=== PATIENT | female | born 1945 | race Caucasian/White ===

== ENCOUNTER 2016-04-29 16:17 | Emergency (ER) | payer MEDICARE, OTHER | END 2016-04-29 20:02 | disposition left against medical advice (07) | LOC: ER1 16:17 | DX: Z53.21 Procedure and treatment not carried out due to patient leaving prior to being seen by health care provider (principal) ==

== ENCOUNTER 2020-09-19 21:39 | Emergency (ER) | payer MEDICARE, OTHER ==
[~2020-09-19 21:39] MED LIST: CATAPRES0.2 MG PO; FLEXERIL 10 MG10 MG PO; K-DUR TAB 10 M10 MEQ PO; LOTENSIN40 MG PO; NORCO 10-325 T1 EACH PO; NORVASC 5 MG TAB5 MG PO; OMEPRAZOLE20 MG PO; TENORMIN 50 MG50 MG PO; VESICARE5 MG PO; VITAMIN D31000 UNI1 PO; ZITHROMAX250 MG PO
[2020-09-19 22:12] LABS: RED BLOOD COUNT 4.48 M/UL (4.00-5.10); WHITE BLOOD COUNT 4.3 K/UL (4.5-11.0)
[2020-09-19 22:34] LABS: BUN/CREATININE RATIO 20 (0-10)
== END 2020-09-19 22:49 | disposition home or self-care (01) ==
LOC: ER1 21:39
PROVIDERS: Student in an Organized Health Care Education/Training Program
DX: U07.1 COVID-19 (principal); J44.9 Chronic obstructive pulmonary disease, unspecified; I10 Essential (primary) hypertension; Z90.710 Acquired absence of both cervix and uterus
CPT/HCPCS: 36600; 71045; 80053; 82550; 82553; 82803; 83874; 84484; 85025; 93005; 99285

== ENCOUNTER 2020-09-24 23:33 | Inpatient (IN) | payer MEDICARE, OTHER ==
[~2020-09-24] VITALS: Ht 160 cm; Wt 108.0 kg
[2020-09-25 00:27] LABS: HEMOGLOBIN 12.4 gm/dl (12.3-15.3); RED BLOOD COUNT 4.21 M/UL (4.00-5.10); WHITE BLOOD COUNT 7.2 K/UL (4.5-11.0)
[2020-09-25 00:48] LABS: BUN/CREATININE RATIO 28 (0-10)
[2020-09-25] MEDS ORDERED: ZOLOFT100 MG PO (09:27)
[2020-09-25] MEDS ORDERED: XANAX1 MG PO (09:29)
[2020-09-25] MEDS ORDERED: CHLORTHALIDONE25 MG PO (10:57)
[2020-09-25] MEDS ORDERED: ASPIRIN EC81 MG PO (10:58)
[2020-09-25] MEDS ORDERED: DOXEPIN HCL25 MG PO (10:58)
[2020-09-25] MEDS ORDERED: CARVEDILOL25 MG PO (10:59)
[2020-09-25] MEDS ORDERED: PLAVIX75 MG PO (11:01)
[2020-09-25] MEDS ORDERED: CETIRIZINE HCL10 MG PO (11:01)
[2020-09-25] MEDS ORDERED: ATORVASTATIN CA40 MG PO (11:02)
[2020-09-25] MEDS ORDERED: CLEAR EYES NATU15 ML EYEBOTH (11:05)
[2020-09-25] MEDS ORDERED: LISINOPRIL40 MG PO (11:09)
[2020-09-26 02:44] LABS: HEMOGLOBIN 11.1 gm/dl (12.3-15.3); RED BLOOD COUNT 3.86 M/UL (4.00-5.10)
[2020-09-26 02:46] LABS: WHITE BLOOD COUNT 5.2 K/UL (4.5-11.0)
[2020-09-27 05:40] LABS: HEMOGLOBIN 11.7 gm/dl (12.3-15.3); RED BLOOD COUNT 4.06 M/UL (4.00-5.10); WHITE BLOOD COUNT 7.3 K/UL (4.5-11.0)
--- NOTE | 2020-09-27 10:49 | NUR ---
10-27-20 0735 TELE CALLS STATES THAT PTS SAT DROPPED DOWN TO THE 70S, WENT TO PTS ROOM AND PT HAD OXYGEN OFF, REAPPLIED O2 AND PT BEGINS TO PULL AT O2 TUBING I TAPED TUBING TO CHEEKS AND EXPLAINED TO PT WHY IT WAS IMPORTANT TO KEEP O2 ON. 09 TELE CALLS O2 HAS DROPPED AGAIN O2 REAPPLIED EDUCATED PT ON KEEPING O2 ON.1020 TELE CALLED O2 SAT DROPPED ONCE AGAIN UNABLE TO GET SAT STABLE O2 CHANGED TO 12L HIGH FLOW.JAROD BERMUDEZ (JAROD) NOTIFIED AND GIVEN AN UPDATE.1130 PT CONTINUES TO PULL OFF O2 AFTER MANY ATTEMPTS TO KEEP IT ON,PTS CONFUSION IS WORSE ATTEMPTED TO CALL DR BORDEN XS2 BUT UNSUCCESSFUL. CALLED DR CUENCA HE STATED THAT HE WASNT ON PTS CASE. 1210 LEONOR SUTHERLANDL ON FLOOR TO SEE PT NEW ORDERS RECEIVED AND PT TAKEN TO ICU, REPORT GIVEN TO FOX AND JAROD BERMUDEZ NOTIFIED PT TRANSFERRED TO ROOM 2128
[2020-09-28 04:16] LABS: HEMOGLOBIN 10.5 gm/dl (12.3-15.3); RED BLOOD COUNT 3.7 M/UL (4.00-5.10); WHITE BLOOD COUNT 6.3 K/UL (4.5-11.0)
[2020-09-29 05:39] LABS: HEMOGLOBIN 10.6 gm/dl (12.3-15.3); RED BLOOD COUNT 3.71 M/UL (4.00-5.10); WHITE BLOOD COUNT 7.1 K/UL (4.5-11.0)
[2020-09-29 05:54] LABS: BUN/CREATININE RATIO 55 (0-10)
[2020-09-30 05:58] LABS: HEMOGLOBIN 11.5 gm/dl (12.3-15.3); RED BLOOD COUNT 3.99 M/UL (4.00-5.10)
[2020-09-30 06:27] LABS: BUN/CREATININE RATIO 54 (0-10)
[2020-10-01 05:13] LABS: HEMOGLOBIN 12.1 gm/dl (12.3-15.3); RED BLOOD COUNT 4.2 M/UL (4.00-5.10)
[2020-10-01 05:52] LABS: BUN/CREATININE RATIO 65 (0-10)
[2020-10-01 15:14] LABS: ADENOVIRUS F 40/41 Not Detected (Negative); ASTROVIRUS Not Detected (Negative); CAMPYLOBACTER Not Detected (Negative); CLOSTRIDIUM DIFFICILE TOX A/B Not Detected (Negative); CRYPTOSPORIDIUM Not Detected (Negative); E.COLI 0157 Not Detected (Negative); ENTAMOEBA HISTOLYTICA Not Detected (Negative); ENTEROAGGREGATIVE E.COLI (EAEC Not Detected (Negative); ENTEROPATHOGENIC E.COLI (EPEC) Not Detected (Negative); ENTEROTOXIGENIC E.COLI (ETEC) Not Detected (Negative); GIARDIA LAMBLIA Not Detected (Negative); NOROVIRUS GI/GII Not Detected (Negative); PLESIOMONAS SHIGELLOIDES Not Detected (Negative); ROTOVIRUS A Not Detected (Negative); SALMONELLA Not Detected (Negative); SAPOVIRUS Not Detected (Negative); SHIG/ENTEROINVAS.ECOLI (EIEC) Not Detected (Negative); SHIGA-LIK TOX.PRO.E.COLI (STEC Not Detected (Negative); VIBRIO Not Detected (Negative); VIBRIO CHOLERAE Not Detected (Negative); YERSINIA ENTEROCOLITICA Not Detected (Negative)
[2020-10-02 06:07] LABS: HEMOGLOBIN 12.1 gm/dl (12.3-15.3); RED BLOOD COUNT 4.24 M/UL (4.00-5.10); WHITE BLOOD COUNT 9.2 K/UL (4.5-11.0)
[2020-10-02 06:10] LABS: BUN/CREATININE RATIO 66 (0-10)
[2020-10-03 05:54] LABS: HEMOGLOBIN 11.7 gm/dl (12.3-15.3); RED BLOOD COUNT 4.07 M/UL (4.00-5.10)
[2020-10-03 06:12] LABS: BUN/CREATININE RATIO 68 (0-10)
[2020-10-03 19:01] LABS: HEMOGLOBIN 11.4 gm/dl (12.3-15.3)
--- NOTE | 2020-10-03 19:05 | NUR ---
CALLED DR. PRIETO ABOUT BLEEDING FROM AN IV SITE THAT THE PT HAD DC'D. HE SAID TO ORDER AN H&H TO BE SURE.
[2020-10-04 04:59] LABS: HEMOGLOBIN 11.3 gm/dl (12.3-15.3); RED BLOOD COUNT 3.91 M/UL (4.00-5.10)
[2020-10-04 05:10] LABS: WHITE BLOOD COUNT 15.7 K/UL (4.5-11.0)
[2020-10-04 05:18] LABS: BUN/CREATININE RATIO 59 (0-10)
[2020-10-05 04:54] LABS: HEMOGLOBIN 11.2 gm/dl (12.3-15.3); RED BLOOD COUNT 3.86 M/UL (4.00-5.10)
[2020-10-06 05:24] LABS: HEMOGLOBIN 11.7 gm/dl (12.3-15.3); RED BLOOD COUNT 4.1 M/UL (4.00-5.10); WHITE BLOOD COUNT 12.3 K/UL (4.5-11.0)
[2020-10-06 05:43] LABS: BUN/CREATININE RATIO 53 (0-10)
[2020-10-07 07:05] LABS: RED BLOOD COUNT 3.84 M/UL (4.00-5.10); WHITE BLOOD COUNT 13.5 K/UL (4.5-11.0)
[2020-10-07 07:15] LABS: BUN/CREATININE RATIO 51 (0-10)
--- NOTE | 2020-10-07 15:16 | NUR ---
1515- NOTIFIED DR PRIETO OF TELE READING OF SVT 150S FOR 6 SECONDS. NO NEW ORDERS NOTED.
[2020-10-08 06:58] LABS: HEMOGLOBIN 10.4 gm/dl (12.3-15.3); RED BLOOD COUNT 3.62 M/UL (4.00-5.10)
[2020-10-08 06:59] LABS: WHITE BLOOD COUNT 8.4 K/UL (4.5-11.0)
[2020-10-08 07:30] LABS: BUN/CREATININE RATIO 54 (0-10)
--- NOTE | 2020-10-08 16:50 | NUR ---
ok to take off tele for MRI
[2020-10-09 06:30] LABS: HEMOGLOBIN 10.8 gm/dl (12.3-15.3); RED BLOOD COUNT 3.74 M/UL (4.00-5.10)
[2020-10-09 07:02] LABS: BUN/CREATININE RATIO 42 (0-10)
[2020-10-10 03:06] LABS: RED BLOOD COUNT 3.48 M/UL (4.00-5.10); WHITE BLOOD COUNT 9.6 K/UL (4.5-11.0)
[2020-10-10 03:49] LABS: BUN/CREATININE RATIO 37 (0-10)
[2020-10-10] MEDS ORDERED: AMLODIPINE BESYL5 MG PO (08:43)
[2020-10-10] MEDS ORDERED: PROVENTIL HFA6.7 GM INH (08:49)
--- NOTE | 2020-10-10 12:06 | NUR ---
OXYGEN SAT 87 ON ROOM AIR
== END 2020-10-10 13:45 | disposition home health service (06) | DRG 870 ==
LOC: ER1 23:33 → CDU 09-25 01:29 → M/S 09-25 01:29 → CCU 09-25 01:29 → MED SURG 4 09-25 21:04 → CCU 09-26 14:25 → M/S 10-04 14:29
PROVIDERS: Family Medicine; Internal Medicine; ADMIT Internal Medicine
PROC: 3E0333Z Introduction of Anti-inflammatory into Peripheral Vein, Percutaneous Approach (ICD-10-PCS; 2020-09-25)
PROC: XW033E5 Introduction of Remdesivir Anti-infective into Peripheral Vein, Percutaneous Approach, New Technology Group 5 (ICD-10-PCS; 2020-09-25)
PROC: 8E0ZXY6 Isolation (ICD-10-PCS; 2020-09-25)
PROC: 5A1955Z Respiratory Ventilation, Greater than 96 Consecutive Hours (ICD-10-PCS; principal; 2020-09-26)
PROC: 0BH18EZ Insertion of Endotracheal Airway into Trachea, Via Natural or Artificial Opening Endoscopic (ICD-10-PCS; 2020-09-26)
PROC: 3E033XZ Introduction of Vasopressor into Peripheral Vein, Percutaneous Approach (ICD-10-PCS; 2020-09-26)
DX: A41.89 Other specified sepsis (principal); U07.1 COVID-19; J12.82 Pneumonia due to coronavirus disease 2019; G93.41 Metabolic encephalopathy; J80 Acute respiratory distress syndrome; N17.9 Acute kidney failure, unspecified; I12.9 Hypertensive chronic kidney disease with stage 1 through stage 4 chronic kidney disease, or unspecified chronic kidney disease; R65.20 Severe sepsis without septic shock; E11.22 Type 2 diabetes mellitus with diabetic chronic kidney disease; N18.9 Chronic kidney disease, unspecified; E87.70 Fluid overload, unspecified; G47.33 Obstructive sleep apnea (adult) (pediatric); E87.6 Hypokalemia; I25.10 Atherosclerotic heart disease of native coronary artery without angina pectoris; E78.5 Hyperlipidemia, unspecified; E66.01 Morbid (severe) obesity due to excess calories; D63.1 Anemia in chronic kidney disease; E86.0 Dehydration; E11.65 Type 2 diabetes mellitus with hyperglycemia; F41.9 Anxiety disorder, unspecified; Z95.1 Presence of aortocoronary bypass graft; Z86.718 Personal history of other venous thrombosis and embolism; Z79.82 Long term (current) use of aspirin; Z88.0 Allergy status to penicillin; Z91.14 Patient's other noncompliance with medication regimen
CPT/HCPCS: 31500; 36415; 36600; 70551; 71045; 80048; 80053; 81001; 82140; 82550; 82553; 82728; 82803; 82962; 83036; 83605; 83735; 83874; 83880; 84100; 84132; 84484; 85014; 85018; 85025; 85027; 85652; 86140; 87040; 87070; 87086; 87205; 87507; 92526; 92610; 93005; 94002; 94003; 94640; 94664; 94760; 97110-GP-CQ; 97162; 97530-GP-CQ; 99285; A6212; J0330; J0360; J0456; J0696; J1100; J1650; J1940; J2020; J2185; J2704; J3480; J7030; U0002

== ENCOUNTER 2021-05-30 15:08 | Emergency (ER) | payer MEDICARE, OTHER ==
[~2021-05-30 15:08] MED LIST changes: +ACETAMINOPHEN325 MG PO; +AMLODIPINE BESYL5 MG PO; +AMOX TR-K CLV1 EAC4 PO; +ARICEPT5 MG PO; +ASPIRIN EC81 MG PO; +ATORVASTATIN CA40 MG PO; +CARVEDILOL25 MG PO; +CETIRIZINE HCL10 MG PO; +CHLORTHALIDONE25 MG PO; +CLEAR EYES NATU15 ML EYEBOTH; +DOXEPIN HCL25 MG PO; +ELIQUIS 5 MG TAB5 MG PO; +LISINOPRIL40 MG PO; +NORVASC5 MG PO; +NYSTATIN15 GM TOP; +PLAVIX75 MG PO; +PROVENTIL HFA6.7 GM INH; +VITAMIN D21250 MCG PO; +XANAX1 MG PO; +ZOLOFT100 MG PO
[2021-05-30 16:08] LABS: HEMOGLOBIN 9.9 gm/dl (12.3-15.3); RED BLOOD COUNT 3.56 M/UL (4.00-5.10); WHITE BLOOD COUNT 8.5 K/UL (4.5-11.0)
[2021-05-30] MEDS ORDERED: IMODIUM CAP 2 MG2 MG PO (18:40)
[2021-05-30] MEDS ORDERED: WIXELA 250-501 EACH INH (18:40)
== END 2021-05-30 20:30 | disposition home or self-care (01) ==
LOC: ER1 15:08
PROVIDERS: Physician Assistant
DX: E86.0 Dehydration (principal); J44.9 Chronic obstructive pulmonary disease, unspecified; R19.7 Diarrhea, unspecified; I10 Essential (primary) hypertension
CPT/HCPCS: 71045; 80053; 81001; 85025; 99284

== ENCOUNTER → 2021-06-10 | Outpatient (CLI) | payer MEDICARE, OTHER ==
[~2021-06-10] MED LIST changes: +IMODIUM CAP 2 MG2 MG PO; +WIXELA 250-501 EACH INH
== END ==
LOC: LAB 12:45
DX: R09.02 Hypoxemia (principal); Z99.81 Dependence on supplemental oxygen
CPT/HCPCS: 36600; 71046; 82803

== ENCOUNTER 2021-07-31 11:13 | Inpatient (IN) | payer MEDICARE, OTHER ==
[~2021-07-31] VITALS: Ht 160 cm; Wt 107.0 kg
[2021-07-31 11:54] LABS: HEMOGLOBIN 10.4 gm/dl (12.3-15.3); RED BLOOD COUNT 3.68 M/UL (4.00-5.10); WHITE BLOOD COUNT 11.4 K/UL (4.5-11.0)
[2021-07-31] MEDS ORDERED: FUROSEMIDE40 MG PO (15:17)
[2021-07-31] MEDS ORDERED: AMLODIPINE BESYL5 MG PO (15:17)
[2021-08-01 00:19] LABS: HEMOGLOBIN 9.8 gm/dl (12.3-15.3); RED BLOOD COUNT 3.48 M/UL (4.00-5.10)
[2021-08-01 00:23] LABS: WHITE BLOOD COUNT 8.3 K/UL (4.5-11.0)
[2021-08-03 03:02] LABS: HEMOGLOBIN 9.9 gm/dl (12.3-15.3); RED BLOOD COUNT 3.56 M/UL (4.00-5.10)
[2021-08-03 03:21] LABS: WHITE BLOOD COUNT 12.7 K/UL (4.5-11.0)
[2021-08-04 02:42] LABS: HEMOGLOBIN 9.7 gm/dl (12.3-15.3); RED BLOOD COUNT 3.5 M/UL (4.00-5.10); WHITE BLOOD COUNT 11.2 K/UL (4.5-11.0)
[2021-08-05 01:44] LABS: HEMOGLOBIN 9.6 gm/dl (12.3-15.3); RED BLOOD COUNT 3.45 M/UL (4.00-5.10); WHITE BLOOD COUNT 9.2 K/UL (4.5-11.0)
[2021-08-06 03:02] LABS: HEMOGLOBIN 9.6 gm/dl (12.3-15.3); RED BLOOD COUNT 3.51 M/UL (4.00-5.10); WHITE BLOOD COUNT 8.4 K/UL (4.5-11.0)
[2021-08-06 03:29] LABS: BUN/CREATININE RATIO 39 (0-10)
[2021-08-06] MEDS ORDERED: CEFUROXIME500 MG PO (10:54)
== END 2021-08-06 15:09 | disposition home health service (06) | DRG 291 ==
LOC: ER1 11:13 → CDU 13:49 → PROG CARE 13:49
PROVIDERS: Emergency Medicine; Internal Medicine; Internal Medicine Pulmonary Disease; ADMIT Internal Medicine
PROC: 5A09357 Assistance with Respiratory Ventilation, Less than 24 Consecutive Hours, Continuous Positive Airway Pressure (ICD-10-PCS; 2021-07-31)
PROC: B24BZZZ Ultrasonography of Heart with Aorta (ICD-10-PCS; principal; 2021-08-02)
PROC: 5A09357 Assistance with Respiratory Ventilation, Less than 24 Consecutive Hours, Continuous Positive Airway Pressure (ICD-10-PCS; 2021-08-02)
PROC: 5A09357 Assistance with Respiratory Ventilation, Less than 24 Consecutive Hours, Continuous Positive Airway Pressure (ICD-10-PCS; 2021-08-03)
PROC: 5A09357 Assistance with Respiratory Ventilation, Less than 24 Consecutive Hours, Continuous Positive Airway Pressure (ICD-10-PCS; 2021-08-03)
PROC: 5A09357 Assistance with Respiratory Ventilation, Less than 24 Consecutive Hours, Continuous Positive Airway Pressure (ICD-10-PCS; 2021-08-05)
DX: I11.0 Hypertensive heart disease with heart failure (principal); Z20.822 Contact with and (suspected) exposure to COVID-19; J96.21 Acute and chronic respiratory failure with hypoxia; J96.22 Acute and chronic respiratory failure with hypercapnia; I50.33 Acute on chronic diastolic (congestive) heart failure; G93.41 Metabolic encephalopathy; J18.9 Pneumonia, unspecified organism; J44.1 Chronic obstructive pulmonary disease with (acute) exacerbation; N17.9 Acute kidney failure, unspecified; E66.2 Morbid (severe) obesity with alveolar hypoventilation; J44.0 Chronic obstructive pulmonary disease with (acute) lower respiratory infection; Z68.41 Body mass index [BMI] 40.0-44.9, adult; E78.3 Hyperchylomicronemia; I48.0 Paroxysmal atrial fibrillation; E78.5 Hyperlipidemia, unspecified; I25.10 Atherosclerotic heart disease of native coronary artery without angina pectoris; E78.6 Lipoprotein deficiency; F32.A Depression, unspecified; I08.3 Combined rheumatic disorders of mitral, aortic and tricuspid valves; F41.9 Anxiety disorder, unspecified; I27.20 Pulmonary hypertension, unspecified; Z79.01 Long term (current) use of anticoagulants; Z79.82 Long term (current) use of aspirin; Z99.81 Dependence on supplemental oxygen; Z83.3 Family history of diabetes mellitus; Z88.8 Allergy status to other drugs, medicaments and biological substances; Z87.09 Personal history of other diseases of the respiratory system; Z86.718 Personal history of other venous thrombosis and embolism
CPT/HCPCS: ECHO; 36415; 36600; 51702; 71045; 80048; 80053; 81001; 82533; 82550; 82553; 82803; 82962; 83036; 83605; 83735; 83880; 84132; 84439; 84443; 84484; 85025; 85027; 85610; 85730; 86140; 87081; 87278; 93005; 93306; 94640; 94660; 94664; 94760; 96365; 96375; 96376; 97161; 97530; 97530-GP-CQ; 99285; J1205; J1335; J1940; J2543; J2920; J2930; J3475; P9047; U0002

== ENCOUNTER 2021-09-22 21:57 | Inpatient (IN) | payer MEDICARE, OTHER ==
[~2021-09-22] VITALS: Ht 160 cm; Wt 104.8 kg
[~2021-09-22 21:57] MED LIST changes: +CEFUROXIME500 MG PO; -CETIRIZINE HCL10 MG PO; +FUROSEMIDE40 MG PO
[2021-09-22 23:08] LABS: HEMOGLOBIN 10.7 gm/dl (12.3-15.3); RED BLOOD COUNT 4.04 M/UL (4.00-5.10); WHITE BLOOD COUNT 12.2 K/UL (4.5-11.0)
[2021-09-22 23:18] LABS: BUN/CREATININE RATIO 23 (0-10)
[2021-09-23 07:12] LABS: HEMOGLOBIN 9.3 gm/dl (12.3-15.3); WHITE BLOOD COUNT 9.2 K/UL (4.5-11.0)
[2021-09-23 07:18] LABS: RED BLOOD COUNT 3.43 M/UL (4.00-5.10)
[2021-09-23] MEDS ORDERED: CETIRIZINE HCL10 MG PO (10:17)
[2021-09-24 07:12] LABS: BUN/CREATININE RATIO 18 (0-10)
[2021-09-25 02:37] LABS: HEMOGLOBIN 9.1 gm/dl (12.3-15.3); RED BLOOD COUNT 3.31 M/UL (4.00-5.10); WHITE BLOOD COUNT 8.2 K/UL (4.5-11.0)
[2021-09-25 03:12] LABS: BUN/CREATININE RATIO 19 (0-10)
[2021-09-26 03:15] LABS: HEMOGLOBIN 9.9 gm/dl (12.3-15.3)
[2021-09-26 03:25] LABS: RED BLOOD COUNT 3.65 M/UL (4.00-5.10); WHITE BLOOD COUNT 11.4 K/UL (4.5-11.0)
[2021-09-26] MEDS ORDERED: AMOX TR-K CLV1 EAC4 PO (13:48)
[2021-09-26] MEDS ORDERED: IPRAT-ALBUT 0.5-3 ML INH (13:48)
[2021-09-26] MEDS ORDERED: LEVOFLOXACIN750 MG PO (13:48)
[2021-09-26] MEDS ORDERED: NEBULIZER UNIT NEB (13:51)
--- NOTE | 2021-09-26 15:49 | NUR ---
PT'S DISCHARGE COMPLETE AWAITING DR QUICK FOR PT TO BE ABLE TO LEAVE.
[2021-09-26] MEDS ORDERED: HYDRALAZINE HCL25 MG PO (16:14)
--- NOTE | 2021-09-26 16:41 | NUR ---
[facility] CALLED TO BE MADE AWARE OF PT'S DISCHARGE
== END 2021-09-26 17:42 | disposition home health service (06) | DRG 194 ==
LOC: ER1 21:57 → CDU 09-23 00:54 → M/S 09-23 00:54 → CDU 09-23 00:54 → M/S 09-23 12:04
PROVIDERS: Internal Medicine; Physician Assistant; ADMIT Internal Medicine
DX: J18.9 Pneumonia, unspecified organism (principal); E66.2 Morbid (severe) obesity with alveolar hypoventilation; J96.11 Chronic respiratory failure with hypoxia; J44.0 Chronic obstructive pulmonary disease with (acute) lower respiratory infection; I50.32 Chronic diastolic (congestive) heart failure; J98.11 Atelectasis; Y95 Nosocomial condition; E86.0 Dehydration; D64.9 Anemia, unspecified; I27.20 Pulmonary hypertension, unspecified; F41.9 Anxiety disorder, unspecified; Z20.822 Contact with and (suspected) exposure to COVID-19; I11.0 Hypertensive heart disease with heart failure; I48.0 Paroxysmal atrial fibrillation; E78.5 Hyperlipidemia, unspecified; R53.81 Other malaise; E87.6 Hypokalemia; Z79.01 Long term (current) use of anticoagulants; Z90.710 Acquired absence of both cervix and uterus; Z90.89 Acquired absence of other organs; Z88.0 Allergy status to penicillin; Z88.8 Allergy status to other drugs, medicaments and biological substances; Z83.3 Family history of diabetes mellitus; Z79.899 Other long term (current) drug therapy; Z79.82 Long term (current) use of aspirin; Z68.39 Body mass index [BMI] 39.0-39.9, adult
CPT/HCPCS: 0240U; 36415; 70450; 70496; 70498; 70551; 71045; 71046; 80048; 80053; 82550; 82553; 83880; 84484; 85025; 85027; 85379; 85610; 85730; 86140; 87040; 93005; 96374; 96375; 97116; 97116-GP-CQ; 97161; 97165; 99285; G0378; J0456; J0692; J0696; J1335; J2185; J3370; Q9967

== ENCOUNTER 2021-10-09 17:04 | Emergency (ER) | payer MEDICARE, MEDICAID ==
[~2021-10-09 17:04] MED LIST changes: +CETIRIZINE HCL10 MG PO; +HYDRALAZINE HCL25 MG PO; +IPRAT-ALBUT 0.5-3 ML INH; +LEVOFLOXACIN750 MG PO; +NEBULIZER UNIT NEB
[2021-10-09 18:53] LABS: HEMOGLOBIN 8.3 gm/dl (12.3-15.3); RED BLOOD COUNT 3.12 M/UL (4.00-5.10); WHITE BLOOD COUNT 7.6 K/UL (4.5-11.0)
== END 2021-10-09 20:10 | disposition home or self-care (01) ==
LOC: ER1 17:04
PROVIDERS: Preventive Medicine Occupational Medicine
DX: I11.0 Hypertensive heart disease with heart failure (principal); I50.9 Heart failure, unspecified; D64.9 Anemia, unspecified; J44.9 Chronic obstructive pulmonary disease, unspecified; Z20.822 Contact with and (suspected) exposure to COVID-19
CPT/HCPCS: 36600; 71045; 80053; 81001; 82140; 82550; 82553; 82803; 83690; 83880; 84484; 85025; 85652; 86140; 87077; 87086; 87186; 93005; 94664; 96374; 99285; U0002

== ENCOUNTER 2021-10-21 17:37 | Observation (INO) | payer MEDICARE, OTHER ==
[~2021-10-21] VITALS: Ht 160 cm; Wt 124.7 kg
[2021-10-21 18:07] LABS: HEMOGLOBIN 8.9 gm/dl (12.3-15.3); RED BLOOD COUNT 3.49 M/UL (4.00-5.10); WHITE BLOOD COUNT 7.7 K/UL (4.5-11.0)
[2021-10-21 18:59] LABS: BUN/CREATININE RATIO 20 (0-10)
[2021-10-22 07:02] LABS: HEMOGLOBIN 8.2 gm/dl (12.3-15.3); RED BLOOD COUNT 3.15 M/UL (4.00-5.10); WHITE BLOOD COUNT 8.2 K/UL (4.5-11.0)
[2021-10-23 02:00] LABS: HEMOGLOBIN 7.9 gm/dl (12.3-15.3); RED BLOOD COUNT 3.08 M/UL (4.00-5.10); WHITE BLOOD COUNT 7.8 K/UL (4.5-11.0)
[2021-10-23 14:14] LABS: HEMATOCRIT 28.4 % (34.0-46.6)
== END 2021-10-23 11:20 | disposition home health service (06) ==
LOC: ER1 17:37 → CDU 20:20 → PROG CARE 20:20
PROVIDERS: Family Medicine; Internal Medicine; ADMIT Family Medicine
DX: I48.20 Chronic atrial fibrillation, unspecified (principal); N17.9 Acute kidney failure, unspecified; I13.0 Hypertensive heart and chronic kidney disease with heart failure and stage 1 through stage 4 chronic kidney disease, or unspecified chronic kidney disease; N18.30 Chronic kidney disease, stage 3 unspecified; I50.31 Acute diastolic (congestive) heart failure; D64.9 Anemia, unspecified; E87.6 Hypokalemia; F41.9 Anxiety disorder, unspecified; G47.00 Insomnia, unspecified; E87.5 Hyperkalemia; E87.2 Acidosis; R73.9 Hyperglycemia, unspecified; J96.11 Chronic respiratory failure with hypoxia; I27.20 Pulmonary hypertension, unspecified; J44.9 Chronic obstructive pulmonary disease, unspecified; I25.10 Atherosclerotic heart disease of native coronary artery without angina pectoris; E78.5 Hyperlipidemia, unspecified; I82.409 Acute embolism and thrombosis of unspecified deep veins of unspecified lower extremity; E66.9 Obesity, unspecified; E66.2 Morbid (severe) obesity with alveolar hypoventilation; Z79.01 Long term (current) use of anticoagulants; Z79.02 Long term (current) use of antithrombotics/antiplatelets; Z79.82 Long term (current) use of aspirin; Z20.822 Contact with and (suspected) exposure to COVID-19; Z99.81 Dependence on supplemental oxygen; Z98.890 Other specified postprocedural states; Z88.0 Allergy status to penicillin
CPT/HCPCS: 36415; 36600; 71045; 72040; 73030; 80048; 80053; 81001; 82550; 82553; 82607; 82747; 82803; 83540; 83550; 83605; 83735; 83880; 84439; 84443; 84484; 85025; 85027; 85610; 85730; 86850; 86900; 86901; 87040; 87086; 94760; 96361; 96374; 99285; G0378; U0002

== ENCOUNTER 2021-11-01 12:37 | Emergency (ER) | payer MEDICARE ==
[2021-11-01] MEDS ORDERED: ZANAFLEX2 MG PO (14:44)
== END 2021-11-01 14:50 | disposition home or self-care (01) ==
LOC: ER1 12:37
DX: S46.911A Strain of unspecified muscle, fascia and tendon at shoulder and upper arm level, right arm, initial encounter (principal); S00.81XA Abrasion of other part of head, initial encounter; Z79.01 Long term (current) use of anticoagulants; W19.XXXA Unspecified fall, initial encounter
CPT/HCPCS: 70450; 73030; 73060; 99284